=== PATIENT | male | born 1950 | race Caucasian/White ===

== ENCOUNTER 2024-04-18 07:18 | Outpatient (CLI) | payer MEDICARE, BC ==
[2024-04-18] MEDS ORDERED: Iopamidol 370 76% 100 ML VIAL ONE (14:35)
== END 2024-04-18 07:19 | disposition home or self-care (01) ==
LOC: CSHCT 07:18
PROVIDERS: ATTEND Physician Assistant
DX: H93.A2 Pulsatile tinnitus, left ear (principal); H74.8X2 Other specified disorders of left middle ear and mastoid; Z98.890 Other specified postprocedural states
CPT/HCPCS: 36415; 70496; 82565; Q9967